=== PATIENT | male | born 1995 | race Caucasian/White ===

== ENCOUNTER 2019-10-21 21:49 | Emergency (ER) | payer OTHER ==
[~2019-10-21] VITALS: Ht 172.7 cm; Wt 56.8 kg
[2019-10-21] MEDS ORDERED: BACTRIM DS1 TAB PO (23:07)
[2019-10-21 23:40] VITALS: BP 135/70
== END 2019-10-21 23:40 | DRG 563 ==
LOC: ED 21:49
PROC: 0HQFXZZ Repair Right Hand Skin, External Approach (ICD-10-PCS; principal; 2019-10-21)
DX: S62.632B Displaced fracture of distal phalanx of right middle finger, initial encounter for open fracture (principal); W23.0XXA Caught, crushed, jammed, or pinched between moving objects, initial encounter; Y92.149 Unspecified place in prison as the place of occurrence of the external cause